=== PATIENT | female | born 1980 | race Caucasian/White ===

== ENCOUNTER 2023-06-16 05:18 | Emergency (ER) | payer SELFPAY ==
[2023-06-16 05:24] VITALS: BP 134/85; PULSE 111; RESP 16; TEMP 36.4; O2SAT 100; BMI 23.2
[2023-06-16 06:11] LABS: Absolute Lymphocyte Count 1.14 X10^3/uL (0.83-4.51); Absolute Neutrophil Count 5.2 X10^3/uL (2.0-7.7); Basophil# 0.05 X10^3/uL; Basophil% 0.7 % (0-1); Eosinophil# 0.02 X10^3/uL; Eosinophils% 0.3 % (0-5); Hematocrit 39.3 % (37-47); Hemoglobin 13.2 g/dL (12.0-15.0); Lymphocyte # 1.14 X10^3/ul (0.83-4.51); Lymphocyte % 16.3 % (19-41); Mean Corp Hgb Conc 33.6 g/dL (32-36); Mean Corpuscular Hgb 29.9 pg (27.0-32.0); Mean Corpuscular Volume 89.1 fL (81-99); Mean Platelet Vol. 9.9 fl (6.2-12.0); Monocyte# 0.51 X10^3/uL; Monocyte% 7.3 % (0-10); NRBC Flagged by Analyzer 0 % (0-5); Neutrophil # 5.23 X10^3/uL (2.7-7.7); Platelet Count 302 K/mm3 (150-450); RBC Distribution Width CV 12.6 % (11.6-14.6); RBC Distribution Width SD 41.2 fl (35.1-43.9); Red Blood Count 4.41 M/mm3 (4.2-5.4)
[2023-06-16 06:14] VITALS: RESP 16
[2023-06-16 06:24] LABS: Internal QC Validated? YES +Cl - CLEAR BKGD; Pregnancy, Serum, hCG Quali. NEGATIVE Negative
[2023-06-16 06:29] LABS: Anion Gap 3 (5-15); BUN 13 mg/dL (7-18); BUN/Creat Ratio 16.8 RATIO (10-20); Calcium,Total 9.3 mg/dL (8.5-10.1); Chloride 107 mmol/L (98-107); Creatinine, Serum 0.77 mg/dL (0.55-1.02); EST Glomerular Filtration Rate 87 mL/min (>60); Est Glom Filt Rate - Afr Amer 105 mL/min (>60); Estimated Creatinine Clearance 75.28 ml/min; Glucose 116 mg/dL (74-106); Potassium 3.3 mmol/L (3.5-5.1); Sodium Level 139 mmol/L (136-145)
[2023-06-16 06:31] LABS: Alcohol, Blood (Medical)-Serum < 3.0 mg/dL
[2023-06-16 06:32] LABS: Amphetamine Urine VISTA NEGATIVE (<1000 ng/mL); Barbiturate Urine VISTA NEGATIVE (< 200 ng/mL); Benzodiazepine Urine VISTA NEGATIVE (< 200 ng/mL); Cocaine Urine VISTA NEGATIVE (< 300 ng/mL); Ecstacy Urine VISTA NEGATIVE (< 500 ng/mL); Methadone Urine VISTA NEGATIVE (< 300 ng/mL); PCP Urine VISTA NEGATIVE (< 25 ng/mL); THC Urine VISTA NEGATIVE (< 50 ng/mL); Vista UDS pH Range 6
--- NOTE | 2023-06-16 06:40 | ED.RN ---
[facility] CALLED TO LET THEM KNOW PT WILL NEED EVALUATED, FAXING [facility].
--- NOTE | 2023-06-16 06:44 | EDS_ITS ---
HPI HPI - Psych History of Present Illness Chief Complaint: Mental Health Informant: patient Onset/Context/Timing Onset: Today Associated Symptoms Associated Symptoms - Psych: Negative for Depressed, Change in Eating, Change in sleeping, Decreased Interest, Guilt, Decreased Concentration, Hopelessness, Suicidal Thoughts, Easily distracted, Grandiosity, Flight of Ideas, Increased activity, Pressured Speech, Agitated, Angry, Hostile, Threatening, Confusion, Paranoia, Visual Hallucinations or Auditory Hallucinations Specific plan (suicidal thought): No plan. No desire to hurt herself. Narrative Narrative: 42-year-old female no seen past medical, surgical or mental health history. Currently on no medications. She states she was sleeping at night. Her younger sister who is here also being evaluated awoke her from sleep said they were in danger, men were coming to the house to get them and they had to leave. She left with her sister they went to a neighbor's home police and paramedics were called they were both brought in. This patient is not suicidal or homicidal. She has believed her sister left with her. Prior similar symptoms: No Recent Illness/Hospitalization: No PFSH PFSH Medical History no medical history no medical history Home Medications NK 06/16/23 [History Last Taken Unknown] Allergy/AdvReac Type Severity Reaction Status Date / Time No Known Allergies Allergy Verified 06/16/23 06:10 Surgical History no surgical history no surgical history Social History Smoking Status: Never smoker ROS ROS ED ROS Narrative She denies any recent illness. Review of Systems ROS Unobtainable: Denies due to encephalopathy Constitutional Constitutional ED: Denies chills or fever(s) Eyes Eyes: Denies blurry vision ENT ENT ED: Denies ear pain Cardiovascular Cardiovascular: Denies chest pain Respiratory/Chest Respiratory/Chest: Denies cough, dyspnea or dyspnea on exertion Gastrointestinal Gastrointestinal: Denies abdominal pain, diarrhea, melena, nausea or vomiting Genitourinary Genitourinary ED: Denies dysuria or hematuria Musculoskeletal Musculoskeletal: Denies arthralgias or back pain Integumentary Denies abscess, Abrasions or rash Neurologic Neurologic: Denies headache(s), paresthesias or weakness Psychiatric Psychiatric: Denies anxiety, depression, suicidal ideation or suicidal thoughts Endocrine Endocrinology: Denies polydipsia or polyphagia Hematologic/Lymphatic Hematologic/Lymphatic: Denies easy bleeding Allergic/Immunologic Allergic/Immunologic ED: Denies mouth swelling, tongue swelling or urticaria EXAM Physical Exam Narrative Exam Narrative: Well-appearing 42-year-old female. Vital signs are stable afebrile. She is sitting upright in bed. No one else is in the room. She is in no distress. She is awake and alert. Makes eye contact. Is forthcoming with information. She is cooperative. H EENT exam normal. Pupils round react light. Extra motion intact. No trauma. Neck nontender. No lymphadenopathy. No signs of trauma. Lungs clear to auscultation bilaterally. Heart regular rhythm rate about 100 no murmur. Chest wall and ribs nontender. Abdomen soft nontender. Patient is moving all 4 extremities. Nontender no edema. No signs of trauma. Normal general manager strength. Normal dorsi plantarflexion. Normal range of motion. Back nontender. Neurologically she is awake alert no focal motor deficits. Mental health malave she is stable and appears to be appropriate. Benign unremarkable exam. Medically cleared. Const Vital Signs: 06/16/23 05:24 06/16/23 06:14 Temperature 97.5 F L Temperature Source Temporal Pulse Rate 111 H Respiratory Rate 16 16 Blood Pressure 134/85 H Blood Pressure Mean 101 Pulse Ox 100 Positive well nourished and well developed; Negative for obese, cachectic, contractures or unkempt General Appearance ED: well developed and NAD; Negative for unkempt, cachectic, contractures or pallor Nutritional Appearance: Negative for cachectic or obese HEENT Reports moist mucous membranes normocephalic and atraumatic; Negative for trauma or tenderness Eyes PERRL and EOMs intact bilaterally General Eye ED: Negative for pale conjunctiva or scleral icterus Neck no lymphadenopathy, supple and no JVD General: Negative for tenderness Resp normal respiratory effort and clear to auscultation bilaterally Effort and Inspection: Negative for retractions Auscultation: Negative for rales, rhonchi, wheezes, diminished lung sounds or other Cardio S2 normal heart sound and no murmurs Palpation: Negative for other Rate: regular rate Rhythm: regular rhythm GI non-tender, non-distended and no masses Inspection: Negative for abdominal distention Auscultation: normoactive bowel sounds Palpation: soft; Negative for tender or guarding Back/Spine no CVA tenderness General Back: Negative for CVA tenderness Cervical Spine: Negative for cervical spine tenderness Thoracic Spine / Upper Back: Negative for thoracic spinal tenderness Lumbar Spine / Lower Back: Negative for lumbar spinal tenderness Coccyx: Negative for other Extremity normal to inspection General Extremety ED: Negative for edema or tenderness General Extremity: Negative for edema Neuro oriented x3 and CN's II-XII intact bilaterally Sensorium / Orientation: alert, oriented to person, oriented to place and oriented to time; Negative for orientation impaired or confused Motor Exam: strength 5/5 throughout Psych mental status grossly normal, thought process normal, cooperative, affect normal, speech normal, activity/motor behavior normal, denies hallucinations, denies homicidal ideation and denies suicidal ideation Appearance: grossly normal, appropriate and well kempt; Negative for unkempt Attitude: calm, engaged, No paranoid, No withdrawn, No bizarre, No uncooperative, No evasive, No guarded, No belligerent, No agitated, No aggressive and No hostile Activity / Motor Behavior: appropriate eye contact; Negative for psychomotor agitation, psychomotor slowing, fidgetting, hyperactive, disorganized, restless, mannerisms, stereotypies, avoids eye contact or other Speech: normal speech Mood & Affect: euthymic mood Thought Process: normal thought process Thought Content: normal thought content Attention / Concentration: attention grossly intact Memory / Cognition: memory grossly intact Insight: insight good Judgement: judgement good Skin General Skin Exam: Negative for jaundice or pallor Lesions: no lesions Rashes: no rashes Trauma: Negative for abrasion Wounds: Negative for amputation MDM MDM MDM Narrative Medical decision making narrative: 42-year-old female was brought in for mental health evaluation which I do not think she needs. Her sister awoke her from sleep told her there are people coming home to get them and she just left with them. She was not having the same thoughts nor any hallucinations. She denies being suicidal or homicidal or wanting to hurt herself or anyone else. I discussed this with their other sister showed up in the emergency department with her and they agree that it is typically the younger sister that has the mental health issues and causes these problems. They are comfortable with this with being discharged home. History & Record Review Discussion w/independent historian: Patient and Family Lab Data Attestation: I reviewed the patient's lab results. Lab results narrative: CBC is normal white count 7. H&H 13 and 39. Platelets 302. Electrolytes show potassium 3.3. Gap 3. Normal BUN 13 creatinine 0.7. Glucose 116. test negative. Talk screen negative. Alcohol negative. Labs: Laboratory Results - last 24 hr 06/16/23 06/16/23 05:55 06:00 WBC 7.0 RBC 4.41 Hgb 13.2 Hct 39.3 MCV 89.1 MCH 29.9 MCHC 33.6 RDW Std Deviation 41.2 RDW Coeff of Lavinia 12.6 Plt Count 302 MPV 9.9 Immature Gran % (Auto) 0.400 Neut % (Auto) 75.0 H Lymph % (Auto) 16.3 L [place] % (Auto) 7.3 Eos % (Auto) 0.3 Baso % (Auto) 0.7 Absolute Neuts (auto) 5.2 Absolute Lymphs (auto) 1.14 Nucleated RBC % 0 Sodium 139 Potassium 3.3 L Chloride 107 Carbon Dioxide 29.0 Anion Gap 3 L BUN 13 Creatinine 0.77 Estim Creat Clear Calc 75.28 Est GFR (MDRD) Af Amer 105 Est GFR (MDRD) Non-Af 87 BUN/Creatinine Ratio 16.8 Glucose 116 H Calcium 9.3 Serum , Qual NEGATIVE Urine Opiates Screen NEGATIVE Urine Methadone Screen NEGATIVE Ur Barbiturates Screen NEGATIVE Ur Phencyclidine Scrn NEGATIVE Ur Amphetamines Screen NEGATIVE MDMA (Ecstasy) Screen NEGATIVE U Benzodiazepines Scrn NEGATIVE Urine Cocaine Screen NEGATIVE U Cannabinoids Screen NEGATIVE Ur Drug Screen Comment Ethyl Alcohol < 3.0 Discharge Plan Triage Chief Complaint: Mental Health ED Provider: Shaheed Brady Dx/Rx/DC Orders Clinical Impression: No abnormality detected on mental health assessment Prescriptions: No Action NK Primary Care Provider: Andrews Tejeda Referrals: Counseling,Center [Group of Physicians] - As Needed Andrews Tejeda DO [Primary Care Provider] - As Needed Activity Restrictions/Additional Instructions: Follow-up with the counseling center as needed. Return if worse. Disposition Disposition: Home, Self Care
--- NOTE | 2023-06-16 07:00 | ED.RN ---
[facility] CALLED TO LET THEM KNOW PT DOES NOT NEED EVALUATED.
[2023-06-16 07:04] VITALS: BP 112/74; PULSE 68; RESP 16; TEMP 36.6; O2SAT 99
== END 2023-06-16 07:05 | disposition home or self-care (01) ==
PROVIDERS: Emergency Provider Emergency Medicine; PCP Family Medicine; Visit Provider Emergency Medicine
DX: Z71.1 Person with feared health complaint in whom no diagnosis is made (principal)
CPT/HCPCS: 36415; 80048; 80307; 80320; 84703; 85025; 99282; G0480